=== PATIENT | male | born 1990 | race Caucasian/White ===

== ENCOUNTER 2019-03-09 00:33 | Emergency (ER) | payer MEDICAID ==
[~2019-03-09] VITALS: Ht 182.9 cm; Wt 63.5 kg
--- NOTE | 2019-03-09 00:45 | NUR ---
PT BIBSELF C/O R SIDE PAIN, R WRIST PAIN, L LEG PAIN FOLLOWING GROUND LEVEL FALL. PT AXO4. RESPIRATIONS EVEN AND UNLABORED. ABRASION ON R EYE NOTED. 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 PENDING EVAL FROM ER .
--- NOTE | 2019-03-09 02:10 | NUR ---
[employer] AT BEDSIDE. LABS DRAWN AND SENT TO LAB.
[2019-03-09 02:18] LABS: BASOPHILS # (AUTO) 0.1 /CMM (0.0-0.2); BASOPHILS % (AUTO) 0.9 % (0.0-2.0); EOSINOPHILS % (AUTO) 3.7 % (0.0-6.0); HEMATOCRIT 41 % (39-51); HEMOGLOBIN 14.2 g/dL (13.5-17.5); LYMPHOCYTES # (AUTO) 3.6 /CMM (0.8-4.8); MEAN CORPUSCULAR HGB CONC 34 g/dl (31.0-36.0); MEAN CORPUSCULAR VOLUME 94 fL (80-96); MONOCYTES # (AUTO) 0.6 /CMM (0.1-1.30); MONOCYTES % (AUTO) 5.1 % (2.0-12.0); NEUTROPHILS % (AUTO) 62.3 % (43.0-81.0); PLATELET COUNT (AUTO) 293 /CMM (150-450); RED BLOOD CELL COUNT(AUTO) 4.42 MIL/uL (4.5-6.0); WHITE BLOOD COUNT (AUTO) 12.8 K/uL (4.3-11.0)
[2019-03-09 02:26] LABS: CALCIUM, SERUM 8.9 mg/dL (8.5-10.1); CREATININE 0.9 mg/dL (0.6-1.3); POTASSIUM 3.4 mmol/L (3.5-5.1)
[2019-03-09] MEDS ORDERED: IOHEXOL-300 100 ML VIAL IV ONE (02:26)
[2019-03-09] MEDS ORDERED: TDAP [DIPH/PERTUSSIS/TET] 0.5 ML VIAL IM ONE (02:30)
--- NOTE | 2019-03-09 02:45 | NUR ---
PT TAKEN TO CT.
--- NOTE | 2019-03-09 03:20 | NUR ---
Patient does not wish to proceed with medical care recommended by Dr. SANCHEZ. Patient given information related to possible complications, up to and including , which could occur as a result of leaving the hospital at this time. Patient verbalizes understanding of risks involved due to leaving against medical advice. Patient has signed AMA form.
[2019-03-09 03:23] VITALS: BP 122/82
== END 2019-03-09 03:24 | disposition left against medical advice (07) ==
LOC: ER 00:36
DX: S05.31XA Ocular laceration without prolapse or loss of intraocular tissue, right eye, initial encounter (principal); R51 Headache; M25.531 Pain in right wrist; M25.511 Pain in right shoulder; M25.562 Pain in left knee; J45.909 Unspecified asthma, uncomplicated; F41.9 Anxiety disorder, unspecified; F10.10 Alcohol abuse, uncomplicated; F17.200 Nicotine dependence, unspecified, uncomplicated; Y90.9 Presence of alcohol in blood, level not specified; W01.198A Fall on same level from slipping, tripping and stumbling with subsequent striking against other object, initial encounter; Y93.89 Activity, other specified; Y92.89 Other specified places as the place of occurrence of the external cause; Y99.8 Other external cause status
CPT/HCPCS: 36415; 70450; 70486; 71045; 72125; 73030; 73110; 73564; 74177; 80048; 85025; 99284; 99406; Q9967